=== PATIENT | male | born 1955 | race Caucasian/White ===

== ENCOUNTER 2018-04-13 23:47 | Emergency (ER) | payer SELFPAY ==
[~2018-04-13] VITALS: Ht 177.8 cm; Wt 80.0 kg
[~2018-04-13 23:47] MED LIST: FLEXERIL PO; NAPROSYN500 MG PO
[2018-04-13 23:52] VITALS: BP 158/103
[2018-04-14] MEDS ORDERED: BACTRIM DS1 TAB PO (00:11)
[2018-04-14] MEDS ORDERED: BACTROBAN21 EX (00:11)
== END 2018-04-14 00:31 | disposition home or self-care (01) | DRG 593 ==
LOC: ED 23:47
DX: L98.499 Non-pressure chronic ulcer of skin of other sites with unspecified severity (principal); L03.116 Cellulitis of left lower limb; L97.229 Non-pressure chronic ulcer of left calf with unspecified severity; F17.210 Nicotine dependence, cigarettes, uncomplicated; Z85.828 Personal history of other malignant neoplasm of skin

== ENCOUNTER 2019-01-24 12:38 | Emergency (ER) | payer BC ==
[~2019-01-24] VITALS: Ht 177.8 cm; Wt 85.5 kg
[~2019-01-24 12:38] MED LIST changes: +BACTRIM DS1 TAB PO; +BACTROBAN21 EX
[2019-01-24] MEDS ORDERED: CEPHALEXIN500 M1 PO (13:01)
[2019-01-24] MEDS ORDERED: BACTRIM DS1 TAB PO (13:01)
[2019-01-24] MEDS ORDERED: TERBINAFINE250 M1 PO ×2 (13:01→16:51)
[2019-01-24 13:23] LABS: HEMATOCRIT 42.7 % (39.0-50.0); HEMOGLOBIN 14.2 g/dl (14.0-18.0); IMMATURE GRANULOCYTES 0.5 % (0.0-5.0); MEAN CELL VOLUME 85.4 fL CALC (80.0-100.0); MEAN CORPUSCULAR HGB 28.4 pG CALC (26.0-32.0); MEAN CORPUSCULAR HGB CONC 33.3 g/L CALC (32.0-36.0); NEUT# 4.05 thou/uL (1.82-7.42)
[2019-01-24 13:25] LABS: GFR > 60 ML/MIN (>=60 (CALC)); GFR FOR AFR.AMER. > 60 ML/MIN (>=60 (CALC))
[2019-01-24 13:46] LABS: ANION GAP 18 (6-22 (CALC)); BUN 19 mg/dL (8-23); BUN/CREATININE RATIO 21 (12-20 (CALC)); CARBON DIOXIDE 23 mmol/l (22-30); CHLORIDE 101 mmol/l (95-108); CREATININE 0.9 mg/dL (0.7-1.3); GFR > 60 ML/MIN (>=60 (CALC)); GFR FOR AFR.AMER. > 60 ML/MIN (>=60 (CALC)); SODIUM 137 mmol/l (137-146)
[2019-01-24] MEDS ORDERED: ONDANSETRON4 MG PO (16:51)
[2019-01-24 17:00] VITALS: BP 151/98
== END 2019-01-24 17:07 | disposition home or self-care (01) | DRG 728 ==
LOC: ED 12:38
PROVIDERS: Family Medicine
DX: N49.2 Inflammatory disorders of scrotum (principal); I10 Essential (primary) hypertension; F17.210 Nicotine dependence, cigarettes, uncomplicated
CPT/HCPCS: Q9967

== ENCOUNTER 2020-03-04 10:56 | Emergency (ER) | payer BC ==
[~2020-03-04 10:56] MED LIST changes: +CEPHALEXIN500 M1 PO; +ONDANSETRON4 MG PO; +TERBINAFINE250 M1 PO
[2020-03-04] MEDS ORDERED: CELEXA20 MG PO ×2 (11:33→11:36)
[2020-03-04] MEDS ORDERED: ATORVASTATIN CA80 MG PO (11:33)
[2020-03-04] MEDS ORDERED: GLIMEPIRIDE2 MG PO (11:34)
[2020-03-04] MEDS ORDERED: TRAMADOL HCL50 MG PO (11:34)
[2020-03-04] MEDS ORDERED: GABAPENTIN300 M2 PO (11:34)
[2020-03-04] MEDS ORDERED: METFORMIN500 M2 PO (11:35)
[2020-03-04] MEDS ORDERED: FAMOTIDINE20 M1 PO (11:35)
[2020-03-04 13:20] VITALS: BP 156/81
== END 2020-03-04 13:20 | disposition home or self-care (01) | DRG 605 ==
LOC: ED 10:56
DX: S00.01XA Abrasion of scalp, initial encounter (principal); I69.351 Hemiplegia and hemiparesis following cerebral infarction affecting right dominant side; I10 Essential (primary) hypertension; F17.210 Nicotine dependence, cigarettes, uncomplicated; W05.0XXA Fall from non-moving wheelchair, initial encounter; Y92.009 Unspecified place in unspecified non-institutional (private) residence as the place of occurrence of the external cause